=== PATIENT | female | born 1970 | race Two or more races ===

== ENCOUNTER 2022-02-22 20:33 | Emergency (ER) | payer MEDICAID ==
[~2022-02-22] VITALS: Ht 157.5 cm; Wt 72.5 kg
[2022-02-22 22:03] VITALS: BP 124/81
[2022-02-22] MEDS ORDERED: IBUPROFEN 800 MG TAB PO ONE (22:30)
== END 2022-02-22 23:02 | disposition home or self-care (01) ==
LOC: ER 20:33
DX: S93.402A Sprain of unspecified ligament of left ankle, initial encounter (principal); Z90.49 Acquired absence of other specified parts of digestive tract; W17.89XA Other fall from one level to another, initial encounter; Y93.39 Activity, other involving climbing, rappelling and jumping off; Y92.89 Other specified places as the place of occurrence of the external cause; Y99.8 Other external cause status
CPT/HCPCS: 73610; 73630

== ENCOUNTER 2024-08-10 | Emergency (ER) | payer MEDICAID ==
[~2024-08-10] VITALS: Ht 152.4 cm; Wt 54.5 kg
--- NOTE | 2024-08-10 00:59 | DVH ---
Exam: CT CT AB PEL WO CON-NO ORAL OR IV History: upper abd pain radiating to mid abd and back Comparison Study: None Technique: Multidetector spiral CT of the abdomen was performed from lung bases to pubic symphysis. Imaging was performed without IV contrast. Axial, coronal and sagittal multiplanar reformats were ob tained from the axial data set by the technologist. Radiation Dose : 1. Abdomen/Pelvis: CTDIvol 5.72 mGy, DLP 297.68 mGy*cm. Findings: Evaluation of solid organs is limited due to lack of intravenous contrast use. Lung Bases: No abnormality demonstrated. Liver: Liver is normal in size. No focal lesions noted. Gallbladder and Biliary Tree: No abnormality demonstrated. Spleen: Normal in size. Cystic lesion measuring up to 4.5 cm noted in the anterior spleen. Pancreas: No abnormality demonstrated. Adrenal Glands: No abnormality demonstrated. Kidneys: Small 3 mm nonobstructing calculus noted in the upper pole of the right kidney. Both kidney s otherwise appear unremarkable. No hydroureteronephrosis. Bladder: Non distended anywhere anytime on the free CBC described the natural. Bowel: Stomach appears grossly unremarkable. No abnormally dilated or thick-walled loops of large or small bowel noted. Appendix is not visualized; however, no secondary findings of acute appendicitis identified. Ascites: Absent Lymphadenopathy: No evidence of lymphadenopathy. Abdominal Wall and Mesentery: Unremarkable. Vasculature: Unremarkable. Pelvic Organs: Unremarkable. Musculoskeletal: No bony lesions or fracture. IMPRESSION: No acute abdominal or pelvic findings. Radiation optimization: All CT scans at this facility use at least one of these dose optimization dayo hniques: automated exposure control mA and/or kV adjustment per patient size (includes targeted exam s where dose is matched to clinical indication) or iterative reconstruction.
[2024-08-10] MEDS: PANTOPRAZOLE 40 MG/10 ML VIAL INJ IV ONE (01:10)
[2024-08-10] MEDS: ONDANSETRON HCL 4 MG/2 ML VIAL IV ONE (01:10)
[2024-08-10] MEDS: MORPHINE SULFATE 4 MG/ML SYR/VIAL IV ONE (01:11)
[2024-08-10] MEDS: SODIUM CHLORIDE 0.9% 1,000 ML IV ONE ×2 (01:11→02:35)
[2024-08-10 01:19] LABS: Basophils # (auto) 0 10 ^3/uL (0-0.2); Basophils % (auto) 0.5 % (0.0-2.0); Eosinophils # (auto) 0 10 ^3/uL (0-0.8); Eosinophils % (auto) 0.4 % (0.0-7.0); Hematocrit 43.6 % (36.0-46.0); Hemoglobin 14.9 g/dL (12.2-16.2); Lymphocytes # (auto) 1.6 10 ^3/uL (0.4-5.4); Lymphocytes % (auto) 22.4 % (10.0-50.0); Mean Corpuscular Hemoglobin 29.7 pg (28.0-32.0); Mean Corpuscular Hgb Conc. 34.2 g/dL (32.0-36.0); Mean Corpuscular Volume 86.8 fL (80.0-100.0); Monocytes # (auto) 0.3 10 ^3/uL (0-1.3); Monocytes % (auto) 4.5 % (0.0-12.0); Neutrophils # (auto) 5.2 10 ^3/uL (1.6-8.6); Neutrophils % (auto) 72.2 % (37.0-80.0); Platelet Count (auto) 300 10^3/uL (140-450); Red Blood Cells 5.02 10^6/uL (4.0-5.20); Red Cell Distribution Width 13.2 % (11.8-14.3); White Blood Cell 7.2 10^3/uL (4.4-10.8)
[2024-08-10 01:28] LABS: Alanine Aminotransferase 22 U/L (7-40); Albumin 4.8 g/dL (3.2-4.8); Alkaline Phosphatase 107 U/L (46-116); Anion Gap 10 (5-15); Aspartate Aminotransferase 19 U/L (13-40); Blood Urea Nitrogen 14 mg/dL (9-23); Calcium 9.8 mg/dL (8.7-10.4); Carbon Dioxide 25 mmol/L (20-31); Chloride 106 mmol/L (98-107); Lipase 41 U/L (12-53); Potassium 3.7 mmol/L (3.5-5.1); Sodium 141 mmol/L (136-145); Total Protein 7.2 g/dL (5.7-8.2)
[2024-08-10 01:29] LABS: Bilirubin, Total 0.5 mg/dL (0.2-1.0)
[2024-08-10 01:31] LABS: Glucose 106 mg/dL (74-106)
--- NOTE | 2024-08-10 01:56 | ED.PDOC ---
GI ASSESSMENT HPI Comments 54-year-old female with no significant past medical history brought in by family complaining of epigastric abdominal pain radiating to the lower abdomen and back, onset around 1999 today. Patient denies any fever or nausea. She self- induced vomiting without relief. She also states she used an enema and had a bowel movement without relief of the abdominal pain. She denies any dysuria or sick contacts. Of note, patient has been on Ozempic for the last several months, however states she did not take most recent prescribed dose. Chief Complaint: Abdominal Pain Time Seen by MD: 00:10 Primary Care Provider: DR NUÑEZ Allergies: Coded Allergies: NO KNOWN ALLERGIES (Unverified , 02/22/22) Mode of Arrival: Wheelchair Past Medical History PAST MEDICAL HISTORY: Denies Surgical History: Appendectomy [employer] History: Denies all [employer] Hx Family History Family History: Reviewed,noncontributory to illness Social History Smoker: Non-Smoker Alcohol: Denies ETOH Use Drugs: Denies Drug Use Lives In: Home All Other Systems: Reviewed and Negative (Comprehensive systems review obtained and negative except for what is stated in the HPI.) Physical Exam General Appearance: Moderate Distress HEENT: Other (Pupils and face symmetric. Moist mucous membranes.) Neck: Full Range of Motion, Normal Inspection Respiratory: Lungs Clear, No Accessory Muscle Use, No Respiratory Distress, Normal Breath Sounds Cardiovascular: No Edema, No JVD, Tachycardia Breast Exam: Deferred Gastrointestinal: Epigastric, Soft, Tenderness Genitalia: Deferred Pelvic: Deferred Rectal: Deferred Extremities: Normal inspection, Normal range of motion, Non-tender, No pedal edema Neurologic: Alert (Oriented x4), Normal Affect, Normal Mood, Other (Ambulatory) Cerebellar Function: NOT DONE Reflexes: NOT DONE Skin: Dry, Normal Color, Warm Lymphatic: NOT DONE Was a procedure done? Was a procedure done?: No GI differential Dx Differential Diagnosis: Bowel Obstruction, Cholecystitis, Constipation, Diverti cular disease, Gastritis/PUD, Gastroenteritis, Inflammatory BD, Pancreatitis, UTI, Dehydration, Diabetes/ DKA, Electrolyte Imbalance, Food Poisoning, , Bacterial, Viral, Hypovolemia, Impaction, Stress Ulcer, Kidney Stone X-Ray, Labs, Meds, VS Vital Signs Date Time Temp Pulse Resp B/P (MAP) Pulse Ox O2 Delivery O2 Flow Rate FiO2 08/10/24 01:11 103 16 101/61 08/10/24 00:10 98.1 109 22 98/51 (67) 100 98.1 Lab Test 08/10/24 00:50 Range/Units White Blood Count 7.2 4.4-10.8 10^3/uL Red Blood Count 5.02 4.0-5.20 10^6/uL Hemoglobin 14.9 12.2-16.2 g/dL Hematocrit 43.6 36.0-46.0 % Mean Corpuscular Volume 86.8 80.0-100.0 fL Mean Corpuscular Hemoglobin 29.7 28.0-32.0 pg Mean Corpuscular Hemoglobin Concent 34.2 32.0-36.0 g/dL Red Cell Distribution Width 13.2 11.8-14.3 % Platelet Count 300 140-450 10^3/uL Mean Platelet Volume 7.7 6.9-10.8 fL Neutrophils (%) (Auto) 72.2 37.0-80.0 % Lymphocytes (%) (Auto) 22.4 10.0-50.0 % Monocytes (%) (Auto) 4.5 0.0-12.0 % Eosinophils (%) (Auto) 0.4 0.0-7.0 % Basophils (%) (Auto) 0.5 0.0-2.0 % Neutrophils # (Auto) 5.2 1.6-8.6 10 ^3/uL Lymphocytes # (Auto) 1.6 0.4-5.4 10 ^3/uL Monocytes # (Auto) 0.3 0-1.3 10 ^3/uL Eosinophils # (Auto) 0 0-0.8 10 ^3/uL Basophils # (Auto) 0 0-0.2 10 ^3/uL Nucleated Red Blood Cells 0.0 % Sodium Level 141 136-145 mmol/L Potassium Level 3.7 3.5-5.1 mmol/L Chloride Level 106 98-107 mmol/L Carbon Dioxide Level 25 20-31 mmol/L Anion Gap 10 5-15 Blood Urea Nitrogen 14 9-23 mg/dL Creatinine 0.70 0.550-1.02 mg/dL Glomerular Filtration Rate Calc 103 >90 mL/min BUN/Creatinine Ratio 20.0 10.0-20.0 Serum Glucose 106 74-106 mg/dL Calcium Level 9.8 8.7-10.4 mg/dL Total Bilirubin 0.5 0.2-1.0 mg/dL Aspartate Amino Transferase (AST) 19 13-40 U/L Alanine Aminotransferase (ALT) 22 7-40 U/L Alkaline Phosphatase 107 46-116 U/L Total Protein 7.2 5.7-8.2 g/dL Albumin 4.8 3.2-4.8 g/dL Lipase 41 12-53 U/L Current Medications Medications (Trade) Dose Ordered Sig/Cassius Route Start Time Stop Time Status Last Admin Sodium Chloride 1,000 ml @ 1,000 mls/hr Q1H ONCE IV 08/10/24 00:15 08/10/24 01:14 DC 08/10/24 01:11 Ondansetron HCl (Zofran) 4 mg ONCE ONCE IV 08/10/24 00:15 08/10/24 00:16 DC 08/10/24 01:10 Morphine Sulfate 4 mg ONCE ONCE IV 08/10/24 00:15 08/10/24 00:16 DC 08/10/24 01:11 Pantoprazole Sodium (Protonix) 40 mg ONCE ONCE IV 08/10/24 00:15 08/10/24 00:16 DC 08/10/24 01:10 PROCEDURE(s): ABPL - CT AB PEL WO CON-NO ORAL OR IV REASON: upper abd pain radiating to mid abd and back ORDER NUMBER(s): [id number], ACCESSION NUMBER(s): [id number] Exam: CT CT AB PEL WO CON-NO ORAL OR IV History: upper abd pain radiating to mid abd and back Comparison Study: None Technique: Multidetector spiral CT of the abdomen was performed from lung bases to pubic symphysis. Imaging was performed without IV contrast. Axial, coronal and sagittal multiplanar reformats were obtained from the axial data set by the technologist. Radiation Dose : 1. Abdomen/Pelvis: CTDIvol 5.72 mGy, DLP 297.68 mGy*cm. Findings: Evaluation of solid organs is limited due to lack of intravenous contrast use. Lung Bases: No abnormality demonstrated. Liver: Liver is normal in size. No focal lesions noted. Gallbladder and Biliary Tree: No abnormality demonstrated. Spleen: Normal in size. Cystic lesion measuring up to 4.5 cm noted in the anterior spleen. Pancreas: No abnormality demonstrated. Adrenal Glands: No abnormality demonstrated. Kidneys: Small 3 mm nonobstructing calculus noted in the upper pole of the right kidney. Both kidneys otherwise appear unremarkable. No hydroureteronephrosis. Bladder: Non distended anywhere anytime on the free CBC described the natural. Bowel: Stomach appears grossly unremarkable. No abnormally dilated or thick- walled loops of large or small bowel noted. Appendix is not visualized; however, no secondary findings of acute appendicitis identified. Ascites: Absent Lymphadenopathy: No evidence of lymphadenopathy. Abdominal Wall and Mesentery: Unremarkable. Vasculature: Unremarkable. Pelvic Organs: Unremarkable. Musculoskeletal: No bony lesions or fracture. IMPRESSION: No acute abdominal or pelvic findings. Radiation optimization: All CT scans at this facility use at least one of these dose optimization techniques: automated exposure control mA and/or kV adjustment per patient size (includes targeted exams where dose is matched to clinical indication) or iterative reconstruction. X-Ray, Labs, Meds, VS Comment 54-year-old female with no significant past medical history other than currently being treated with Ozempic, presenting with the abdominal pain. Vitals remarkable for heart rate 109, respiratory rate 22, BP 98/51 Exam remarkable for epigastric tenderness to palpation Rhythm strip independently interpreted by me: Sinus tach, rate 109, no ectopy. CT abdomen and pelvis IMPRESSION: No acute abdominal or pelvic findings. CBC and CMP normal, lipase normal Patient treated with the following in the ED: 2 L 0.9 normal saline IV bolus, morphine 4 mg IV, Zofran 4 mg IV, Protonix 40 mg IV On re-evaluation, patient states symptoms have improved. Vitals are stable. Patient is no longer tachycardic. Repeat abdominal exam is benign. Hospitalization was considered, however patient had rapid improvement of symptoms with treatment in the ED, and I no longer feel hospitalization is necessary. Possibly patient's symptoms are due to treatment with Ozempic. Patient appears stable for discharge with close outpatient follow up. Rx Zofran, Bentyl, Tylenol Time of 1ST Reevaluation: 01:58 Reevaluation 1ST: Improved Patient Education/Counseling: Diagnosis, Treatment, Need For Follow Up Family Education/Counseling: No Family Present Departure 1 Departure Time of Disposition: 02:00 Impression: Primary Impression: Abdominal pain Qualified Codes: R10.13 - Epigastric pain Disposition: HOME / SELF CARE / HOMELESS Condition: Stable Additional Instructions: Your blood tests were normal. Your CT scan was unremarkable. Your symptoms could be due to Ozempic. I have prescribed medication for your symptoms. Follow up with her primary doctor in 1-2 days. Return to the ER for persistent or worsening symptoms. e-Prescriptions Acetaminophen (Tylenol Extra Strength) 500 Mg Tab 1000 MG PO Q6HP PRN, #30 TAB prn pain Prov: JOSEPH NOONAN MD 08/10/24 Dicyclomine Hcl (BENTYL CAPSULE) 10 Mg Cp 2 CAP PO Q6HP PRN, #30 CAP 11 Refills prn abdominal pain Prov: JOSEPH NOONAN MD 08/10/24 Ondansetron Odt 4MG Tab (ZOFRAN PO) 4 Mg Tb 4 MG PO TID PRN, #30 TAB prn nausea/vomiting ODT TAB-DISSOLVE IN MOUTH, THEN SWALLOW Prov: JOSEPH NOONAN MD 08/10/24 Discharged With: Relative Critical Care Note Critical Care Time?: No Stability Stability form required: No Heart Score Heart Score: Heart Score Response (Comments) Value History N/A 0 EKG N/A 0 Age N/A 0 Risk Factors N/A 0 Troponin N/A 0 Total 0 JOSEPH NOONAN MD Aug 10, 2024 01:56
[2024-08-10] MEDS ORDERED: ZOFR4T PO (02:02)
[2024-08-10] MEDS ORDERED: DICY10CA PO (02:02)
[2024-08-10] MEDS ORDERED: ACET-1304 PO (02:02)
[2024-08-10 02:29] VITALS: PULSE 70; RESP 13; O2SAT 100
[2024-08-10 03:18] VITALS: BP 120/60; PULSE 75; RESP 15; TEMP 98; O2SAT 100
== END 2024-08-10 06:38 | disposition home or self-care (01) ==
LOC: ER
DX: R10.13 Epigastric pain (principal); Z90.49 Acquired absence of other specified parts of digestive tract
CPT/HCPCS: 36415; 74176; 80053; 83690; 85025; 96361; 96374; 96375; 99285; J2270; J2405; J2470; J7030